=== PATIENT | male | born 2005 | race Caucasian/White ===

== ENCOUNTER 2024-01-21 23:37 | Emergency (ER) | payer SELFPAY ==
[~2024-01-21] VITALS: Ht 175.3 cm; Wt 72.0 kg
[2024-01-21 23:56] VITALS: BP 142/86; PULSE 98; RESP 18; TEMP 98.3; O2SAT 100
== END 2024-01-22 02:36 | disposition left against medical advice (07) ==
LOC: ER 23:52
DX: F10.129 Alcohol abuse with intoxication, unspecified (principal); Z53.21 Procedure and treatment not carried out due to patient leaving prior to being seen by health care provider; Y90.9 Presence of alcohol in blood, level not specified